=== PATIENT | female | born 1980 | race American Indian/Alaskan Native ===

== ENCOUNTER 2017-10-20 06:15 | Emergency (ER) | payer OTHER ==
[2017-10-20 06:51] LABS: HCG Qualitative,Urine Negative (Negative)
[2017-10-20] MEDS ORDERED: BENADRYL IV ONE (07:04)
[2017-10-20] MEDS ORDERED: TORADOL IV ONE (07:04)
[2017-10-20] MEDS ORDERED: REGLAN IV ONE (07:04)
--- NOTE | 2017-10-20 07:19 | Cat Scan Report ---
FINAL REPORT EXAM: CT HEAD/BRAIN WO CON HISTORY: headache TECHNIQUE: Routine axial imaging was obtained of the brain without IV contrast. FINDINGS: The ventricular system is appropriate in size and is symmetric. There is no evidence of acute stroke or hemorrhage. There are no extra-axial fluid collections. The visualized sinuses are clear. The mastoid air cells are well pneumatized. The calvarium appears intact. IMPRESSION: No acute intracranial process.
--- NOTE | 2017-10-20 07:43 | Emergency Department Report ---
ED Headache HPI - General Chief Complaint: Headache Stated Complaint: HEADACHE Time Seen by Provider: 10/20/17 06:58 - History of Present Illness Initial Comments: This is a 37-year-old -[place] female who presents with the headache for 3 days. Patient states headache started last Friday around frontal area and thighs. Patient reports pain as throbbing and 10 out of 10 on pain scale. Patient states it times she feels pressure and throbbing in the back of her head. Patient reported his headache lasts for 5-12 hours. Patient states she has also had some sensitivity to light that aggravates headache. She is taken ibuprofen for symptom relief with no improvement. Patient denies fever, congestion, chest pain, shortness of breath, nausea or vomiting, and abdominal pain. Timing/Duration: 24 hours, constant Quality: severe, pressure, throbbing Head Injury Location: frontal Recent Head Trauma: no recent headache/trauma Modifying Factors: improves with: exposure to light, medication Associated Symptoms: vision changes (sensitivity to light). denies: confusion, fatigue, facial pain, fever/chills, flushing, loss of consciousness, nausea/ vomiting, nasal congestion, nasal drainage, numbness in legs/feet, rash, seizures, sinus infection, stiff neck, weakness Allergies/Adverse Reactions: Allergies No Known Allergies Allergy (Unverified 10/20/17 06:35) Home Medications: Ambulatory Orders Ibuprofen [Motrin 800 MG tab] 800 mg PO Q8HR PRN #12 tablet 10/20/17 SUMAtriptan SUCCINATE [Imitrex] 25 mg PO DAILY PRN #8 tablet 10/20/17 ED Review of Systems ROS: Stated complaint: HEADACHE Other details as noted in HPI Constitutional: denies: chills, fever ENT: denies: ear pain, throat pain, dental pain, hearing loss, epistaxis, congestion Respiratory: denies: cough, shortness of breath, wheezing Cardiovascular: denies: chest pain, palpitations Gastrointestinal: denies: abdominal pain, nausea, vomiting, diarrhea Neurological: headache. denies: weakness, paresthesias Psychiatric: denies: anxiety, depression ED Past Medical Hx - Past Medical History Previous Medical History?: No - Surgical History Additional Surgical History: X 2 - Social History Smoking Status: Current Every Day Smoker Substance Use Type: None - Medications Home Medications: Home Medications Medication Instructions Recorded Confirmed Last Taken Type Ibuprofen [Motrin 800 MG tab] 800 mg PO Q8HR PRN #12 tablet 10/20/17 Unknown Rx SUMAtriptan SUCCINATE [Imitrex] 25 mg PO DAILY PRN #8 tablet 10/20/17 Unknown Rx ED Physical Exam - General Limitations: No Limitations General appearance: alert, in no apparent distress, obese - ENT ENT exam: Present: normal exam, mucous membranes moist - Neck Neck exam: Present: normal inspection. Absent: tenderness, meningismus, lymphadenopathy, thyromegaly - Respiratory Respiratory exam: Present: normal lung sounds bilaterally. Absent: respiratory distress - Cardiovascular Cardiovascular Exam: Present: regular rate, normal rhythm. Absent: systolic murmur, diastolic murmur, rubs, gallop - GI/Abdominal GI/Abdominal exam: Present: soft, normal bowel sounds. Absent: organomegaly, mass - Neurological Exam Neurological exam: Present: alert, oriented X3, normal gait - Psychiatric Psychiatric exam: Present: normal affect, normal mood - Skin Skin exam: Present: warm, dry, intact, normal color. Absent: rash ED Course Vital Signs 10/20/17 10/20/17 06:31 07:28 Temperature 98 F Pulse Rate 74 Respiratory 18 18 Rate Blood Pressure 148/92 O2 Sat by Pulse 98 Oximetry ED Medical Decision Making - Radiology Data Radiology results: report reviewed, image reviewed EXAM: CT HEAD/BRAIN WO CON HISTORY: headache TECHNIQUE: Routine axial imaging was obtained of the brain without IV contrast. FINDINGS: The ventricular system is appropriate in size and is symmetric. There is no evidence of acute stroke or hemorrhage. There are no extra-axial fluid collections. The visualized sinuses are clear. The mastoid air cells are well pneumatized. The calvarium appears intact. IMPRESSION: No acute intracranial process. - Medical Decision Making This is a 37 y.o. female that presents with headache for 3 days. No past medical history of migraines. Patient is stable and was examined by me. CT of head obtained and dictated by radiologist. No acute intracranial process. Signs of distress noted. Given Reglan 10 mg IV, Benadryl 25 mg IV, and Toradol 30 mg IV in ER. Start imitrex 25 mg daily when necessary and ibuprofen 800 mg po q8h prn for migraine headaches. Continue to take and naproxen, ibuprofen, or Tylenol for maintenance. Discussed discharge plan with the patient. No further questions noted by the patient. Discharged home in stable condition. Follow up with PCP in 24-72 hours. Critical care attestation.: If time is entered above; I have spent that time in minutes in the direct care of this critically ill patient, excluding procedure time. ED Disposition Clinical Impression: Headache in front of head Migraine Qualifiers: Migraine type: without aura Status migrainosus presence: with status migrainosus Intractability: not intractable Qualified Code(s): G43.001 - Migraine without aura, not intractable, with status migrainosus Disposition: TO HOME OR SELFCARE Is pt being admited?: No Does the pt Need Aspirin: No Condition: Stable Instructions: Migraine Headache (ED), Acute Headache (ED) Additional Instructions: Take medication at start of headache. Moderate caffeine intake. Eat at scheduled times or 3 meals a day with snacks. Follow up with primary care provider in 24-72 hours. Prescriptions: Ibuprofen [Motrin 800 MG tab] 800 mg PO Q8HR PRN #12 tablet PRN Reason: Pain, Moderate (4-6) SUMAtriptan SUCCINATE [Imitrex] 25 mg PO DAILY PRN #8 tablet PRN Reason: Migraine Headache Referrals: [facility] [Outside] - 3-5 Days [facility] [Outside] - 3-5 Days ELAINE ARRIAGA MD [Staff Physician] - 3-5 Days Forms: Work/School Release Form(ED) Time of Disposition: 08:00 Print Language: ALBANIAN
[2017-10-20 08:15] VITALS: BP 141/88
== END 2017-10-20 08:13 | disposition home or self-care (01) ==
LOC: ED 06:15
DX: G43.001 Migraine without aura, not intractable, with status migrainosus (principal); F17.200 Nicotine dependence, unspecified, uncomplicated
CPT/HCPCS: 70450; 81025; 96374; 96375; 99284; J1200; J1885; J2765

== ENCOUNTER 2020-10-23 05:45 | Emergency (ER) | payer OTHER ==
[2020-10-23 06:01] VITALS: BP 146/95
--- NOTE | 2020-10-23 07:29 | Emergency Department Report ---
Chief Complaint: Skin Rash Stated Complaint: RASH Time Seen by Provider: 10/23/20 07:26 - HPI History of Present Illness: 40-year-old morbid obese -[place] Citizen female presents to the emergency room states that she have a red rash to her right side of her neck/shoulder. Patient states she started yesterday after she had been bitten by a bug and she started to scratch it. Patient states after she scratched it seems of gotten redder and firmer. She states that the itching in is not as bad. She denies any pain at all no discharge. Denies any fever chills. - Exam Vital Signs: Vital Signs 10/23/20 06:00 Pulse Rate 91 H Respiratory 19 Rate Blood Pressure 146/95 O2 Sat by Pulse 95 Oximetry Physical Exam: General: Awake, appropriately interactive, no acute distress. Neck: Supple. Full range of motion intact. Red indurated skin that is not warm. Appears to be irritation from scratching. There is no open skin full range of motion nontender to palpate Cardiovascular: Normal peripheral perfusion. Pulmonary: No respiratory distress. Patient is speaking normally without use of accessory muscles. Neurological: No facial asymmetry. speech is clear. Follows commands. Patient is alert and oriented. Musculoskeletal: Full range of motion, no crepitus. Able to bear weight and ambulate without difficulty. Distal neurovascular and motor/sensory function is intact. Psych: Cooperative. Appropriate mood and affect. MSE screening note: Focused history and physical exam performed. Due to findings the following was ordered: 40-year-old morbid obese -[place] Citizen female presents to the emergency room states that she have a red rash to her right side of her neck/shoulder. Patient states she started yesterday after she had been bitten by a bug and she started to scratch it. Patient states after she scratched it seems of gotten redder and firmer. She states that the itching in is not as bad. She denies any pain at all no discharge. Denies any fever chills. ED Disposition for MSE Disposition: -01 TO HOME OR SELFCARE Is pt being admited?: No Does the pt Need Aspirin: No Condition: Stable Additional Instructions: Recommend [id number] hydrocortisone cream prevent skin from scratching cool compress. Time of Disposition: 07:29
== END 2020-10-23 17:15 | disposition home or self-care (01) ==
LOC: ED 05:45
DX: R21 Rash and other nonspecific skin eruption (principal); W57.XXXA Bitten or stung by nonvenomous insect and other nonvenomous arthropods, initial encounter; Y93.89 Activity, other specified; Y92.89 Other specified places as the place of occurrence of the external cause; Y99.8 Other external cause status
CPT/HCPCS: 99281